=== PATIENT | female | born 1975 | race American Indian/Alaskan Native ===

== ENCOUNTER 2016-10-25 06:54 | Day surgery (SDC) | payer OTHER ==
[2016-10-17 08:49] VITALS: BMI 29.9
[2016-10-25] MEDS ORDERED: Midazolam 2 MG/2 ML VIAL ONE (09:19)
[2016-10-25] MEDS ORDERED: Propofol 10 mg/ml Inj (20 ML) ONE (09:19)
[2016-10-25] MEDS ORDERED: Lactated Ringer's 1,000 ML IV ONE ×2 (09:20)
[2016-10-25] MEDS ORDERED: HYDROmorphone 0.5 mg/0.5 ml ISec IVP PRN (10:37)
[2016-10-25] MEDS ORDERED: HYDROmorphone 0.5 mg/0.5 ml ISec ONE ×2 (10:48→11:47)
[2016-10-25] MEDS ORDERED: HYDROmorphone 0.5 mg/0.5 ml ISec IVP ONE ×2 (11:18→11:49)
[2016-10-25 11:58] LABS: HEMATOCRIT 36.4 % (34.0-47.0); MEAN CELL VOLUME 86.5 fL (81.0-99.0); MEAN CORPUSCULAR HEMOGLOBIN 27.1 pg (27.0-31.0); MEAN CORPUSCULAR HGB CONC 31.3 g/dL (33.0-37.0); MEAN PLATELET VOLUME 10.3 fL (7.2-11.7); RED CELL DISTRIBUTION WIDTH 14.4 % (11.5-14.5)
[2016-10-25 11:59] LABS: WHITE BLOOD COUNT 11.9 K/uL (4.8-10.8)
[2016-10-25 12:15] LABS: CHLORIDE 103 mmol/L (98-107); SODIUM 137 mmol/L (132-148)
[2016-10-25 12:17] LABS: GFR AFRICAN-AMERICAN > 60
[2016-10-25 12:18] LABS: BLOOD UREA NITROGEN 11 mg/dL (7-17); CALCIUM 7.3 mg/dl (8.6-10.4); CARBON DIOXIDE 23 mmol/L (22-30); GLUCOSE,RANDOM 93 mg/dL (65-105)
--- NOTE | 2016-10-25 12:24 | PCM.SURG1 ---
Surgeon's Initial Post Op Note - Surgeon's Notes Surgeon: Bre Garsia MD Site Administrator: none Type of Anesthesia: General LMA Pre-Operative Diagnosis: Submucosal myomas, sympoamtic fibroid uteurs, abnormal uterine bleeding, pelvic pain Operative Findings: Enlarged 12 week size uteurs, no adnexal masses, 5cm+ submucosal myoma protruding 80-90% into cavity, bilateral ostia visulzied Post-Operative Diagnosis: same as above Operation Performed: Hysteroscopic myomecotmy, fractional dilation and currettage Specimen/Specimens Removed: endocervical currettings, endometrial curretings, submucosal myoma Estimated Blood Loss: EBL {In ML}: 50 Drains Used: No Drains Post-Op Condition: Good Date of Surgery/Procedure: 10/25/16 Time of Surgery/Procedure: 10:00
--- NOTE | 2016-10-25 13:37 | OP ---
PROCEDURE DATE: 10/25/2016 SURGEON: Dr. Bre Garsia BACK UP MACHINE OPERATOR: None. TYPE OF ANESTHESIA: General LMA. PREOPERATIVE DIAGNOSES: Submucosal myoma, symptomatic fibroid uterus, abnormal uterine bleeding, pel isaak pain. OPERATIVE FINDINGS: Enlarged 12-week size uterus, no adnexal masses, 5 cm plus submucosal myoma prot ruding 80%-90% into the cavity, bilateral ostia visualized. POSTOPERATIVE DIAGNOSIS: Submucosal myoma, symptomatic fibroid uterus, abnormal uterine bleeding, pe lvic pain. OPERATION PERFORMED: Hysteroscopic myomectomy, fractional dilation and curettage. SPECIMEN REMOVED: Endocervical curettings, endometrial curettings, submucosal myoma. ESTIMATED BLOOD LOSS: 10 mL. BLOOD PRODUCTS: None. COMPLICATIONS: None. The patient was taken to the operating where she was given general anesthesia. Once this was found b e adequate, the patient was positioned on the operating table in dorsal supine position with legs sup ported using stirrups. The patient was prepped and draped in usual sterile fashion. Timeout, which confirmed correct patient and correct procedure. Bimanual exam was performed with above-mentioned fi ndings. The red rubber catheter was then inserted in the urethra to drain the bladder, 30 mL of enriqueta r yellow urine were obtained. Following this, Keating retractor was placed in the anterior, posterior f ornix of vagina. Cervical was adequately visualized. Single tooth tenaculum was placed on the anter ior lip of the cervix. Endocervical curettings were obtained with a Lupilloian curette and [facility]. Following this, the uterus was then sounded to 10 cm and the cervix was sequential ly dilated to allow for introduction of the MyoSure hysteroscope under direct visualization using nor mal saline as the distending media. Upon visualization, there was a very large myoma noted to be att ached anterior protruding into the cavity. After advancing the scope inferior to this myoma, bilater al ostia were visualized. The MyoSure device was then inserted under direct visualization and was ca refully resected until fluid deficit of 1800 mL was then noted. Following this, the hysteroscope was then removed and a gentle curettage was done 360 degrees until a gritty texture was noted. The sing le tooth tenaculum was removed from the anterior lip of the cervix. Bimanual exam was performed and there was good hemostasis noted. All instruments were removed. At the end of the procedure, all nee dle, sponge and instrument counts were noted to be correct x 2. The patient tolerated the procedure well and was transferred to the recovery room in stable condition. Bre Garsia MD cc: [id number] TT: 10/25/2016 13:37:06 en
[2016-10-25 13:41] VITALS: O2SAT 100
[2016-10-25 17:24] VITALS: BP 114/66; PULSE 74; RESP 20; TEMP 98
== END 2016-10-25 15:45 | disposition home or self-care (01) ==
LOC: C.SDS 06:54
PROVIDERS: ATTEND Obstetrics & Gynecology
DX: D25.0 Submucous leiomyoma of uterus (principal); N93.9 Abnormal uterine and vaginal bleeding, unspecified; R10.2 Pelvic and perineal pain
CPT/HCPCS: 36415; 58558; 80048; 85027; 86850; 86900; 88305; J1100; J1170; J2250; J2405; J2704; J2765; J3010; J7120

== ENCOUNTER 2016-12-31 11:50 | Inpatient (IN) | payer OTHER ==
[2016-11-25 10:25] VITALS: BMI 29.9
[2016-12-31] MEDS ORDERED: Bupivacaine 0.5% Inj(30mL) ONE (13:50)
[2016-12-31] MEDS ORDERED: Sodium Citrate/Citric Acid 15 ml Sol ONE (14:00)
[2016-12-31] MEDS ORDERED: Lactated Ringer's 1,000 ML IV ONE ×3 (14:00→17:27)
[2016-12-31] MEDS ORDERED: Propofol 10 mg/ml Inj (20 ML) ONE (14:02)
[2016-12-31] MEDS ORDERED: Midazolam 2 MG/2 ML VIAL ONE (14:02)
[2016-12-31] MEDS ORDERED: Vasopressin 20 Units/ml Inj ONE (14:49)
[2016-12-31] MEDS ORDERED: Sodium Chloride 0.9% 20 ML IV ONE ×2 (14:50→15:04)
[2016-12-31] MEDS ORDERED: Sodium Chloride 0.9% 60 ML IV ONE (14:58)
[2016-12-31] MEDS ORDERED: Clindamycin 600mg/50ml D5W 600 MG/50 ML VIAL IVPB ONE (16:16)
--- NOTE | 2016-12-31 18:17 | PCM.SURG1 ---
Surgeon's Initial Post Op Note - Surgeon's Notes Surgeon: Bre Garsia MD Warranty Manager: Anthony Underwood MD Type of Anesthesia: General Endo Pre-Operative Diagnosis: Sympomatic fibroids uterus, pelvic pain, endometriosis , Abnormal uterine bleeding Operative Findings: enlarged multifibroid uterus, multiple submucosal myomas 2cm , larger fundal myoma 8cm protruding across uterus, 4cm posterior myoma, normla tubes and ovaries bilaterlluy. procedure converted from laparascopy to open due to unable to achieve hemostasis from kelin lmyoma resection. endometriotic implants noted on bowel ranging 0.5-1cm and in posterior cul de sac. urine output 600ml ebl 500ml. Dr Anthony Underwood was surgical brace maker and essential in gaining entyr, establishing pneoumperintum, myoma dissection, resection, obtaing hemostasis, closing all laerys and was present for entire care. Post-Operative Diagnosis: same as above Operation Performed: Laparasopic myomectomy, lysis of adhesions, resection and ablation of endometriosis, converted to mini laparatomy Specimen/Specimens Removed: myomas Estimated Blood Loss: EBL {In ML}: 500 Blood Products Given: N/A Drains Used: No Drains Date of Surgery/Procedure: 12/31/16 Time of Surgery/Procedure: 14:00
[2016-12-31] MEDS ORDERED: DiphenhydrAMINE 50 mg/ml Inj IVP PRN (18:22)
[2016-12-31] MEDS ORDERED: Dexamethasone 4 mg/1 ml IVP PRN (18:22)
[2016-12-31] MEDS ORDERED: Morphine Monoject Barrel PCA 1mg/ml IV PRN (18:25)
[2016-12-31] MEDS: HYDROmorphone 0.5 mg/0.5 ml ISec IVP PRN ×4 (18:27→19:24)
[2016-12-31] MEDS ORDERED: HYDROmorphone 0.5 mg/0.5 ml ISec ONE (18:28)
[2016-12-31] MEDS ORDERED: Lactated Ringer's 1,000 ML IV SCH ×2 (18:30)
[2016-12-31] MEDS ORDERED: Morphine Monoject Barrel PCA 1mg/ml IV SCH (19:30)
[2016-12-31 20:07] LABS: BASO % 0.1 % (0.0-2.0); LYMPH # 1.2 K/uL (1.0-4.3); LYMPH % 4.9 % (20.0-40.0); MEAN CORPUSCULAR HEMOGLOBIN 25.9 pg (27.0-31.0); MEAN CORPUSCULAR HGB CONC 31.5 g/dL (33.0-37.0); MEAN PLATELET VOLUME 9.7 fL (7.2-11.7); MONO # 0.4 K/uL (0.0-0.8); MONO % 1.8 % (0.0-10.0); NEUT # 22.8 K/uL (1.8-7.0); NEUT % 93.2 % (50.0-75.0); PLATELET COUNT 298 K/uL (130-400); RBC 3.61 Mil/uL (3.80-5.20); RED CELL DISTRIBUTION WIDTH 15.8 % (11.5-14.5); WHITE BLOOD COUNT 24.5 K/uL (4.8-10.8)
[2016-12-31 20:16] LABS: HEMOGLOBIN 9.4 g/dL (11.0-16.0); MEAN CELL VOLUME 82.4 fL (81.0-99.0)
[2016-12-31 20:18] LABS: BLOOD UREA NITROGEN 10 mg/dL (7-17); CALCIUM 7.7 mg/dl (8.6-10.4); GFR AFRICAN-AMERICAN > 60; GFR NON-AFRICAN AMERICAN > 60
[2016-12-31 20:54] LABS: BANDS 4 % (0-2); NEUTROPHIL 81 % (50-75); TOTAL CELLS COUNTED 100
[2016-12-31 20:55] LABS: HYPOCHROMIC SLIGHT; LYMPHOCYTE 9 % (20-40); MICROCYTOSIS SLIGHT; MONOCYTE 6 % (0-10); PLATELET ESTIMATE NORMAL (NORMAL); TEARDROP CELLS SLIGHT
[2016-12-31 20:56] LABS: LARGE PLATELETS PRESENT
[2016-12-31] MEDS ORDERED: Calcium Gluconate 4.65 mEq/10 ml Inj IVP ONE (21:03)
[2016-12-31] MEDS: Sodium Chloride 0.9% 1,000 ML IV SCH (21:15)
[2016-12-31] MEDS: Clindamycin 600mg/50ml D5W 600 MG/50 ML VIAL IVPB SCH (22:06)
[2017-01-01] MEDS: Sodium Chloride 0.9% 1,000 ML IV SCH (05:32)
[2017-01-01] MEDS: Clindamycin 600mg/50ml D5W 600 MG/50 ML VIAL IVPB SCH ×2 (06:11→14:59)
[2017-01-01 07:21] LABS: HEMOGLOBIN 9.1 g/dL (11.0-16.0); MEAN CELL VOLUME 83.1 fL (81.0-99.0); MEAN CORPUSCULAR HEMOGLOBIN 26.4 pg (27.0-31.0); MEAN CORPUSCULAR HGB CONC 31.8 g/dL (33.0-37.0); MEAN PLATELET VOLUME 10.1 fL (7.2-11.7); RBC 3.46 Mil/uL (3.80-5.20); RED CELL DISTRIBUTION WIDTH 15.5 % (11.5-14.5); WHITE BLOOD COUNT 18.2 K/uL (4.8-10.8)
[2017-01-01 07:45] LABS: GFR AFRICAN-AMERICAN > 60; GFR NON-AFRICAN AMERICAN > 60
[2017-01-01 07:46] LABS: BLOOD UREA NITROGEN 6 mg/dL (7-17); CALCIUM 7.9 mg/dl (8.6-10.4)
[2017-01-01] MEDS ORDERED: Oxycodone/Acetaminophen 5/325 mg Tab PO PRN (15:44)
[2017-01-01] MEDS: Oxycodone/Acetaminophen 5/325 mg Tab PO PRN ×2 (18:09→22:25)
--- NOTE | 2017-01-01 18:24 | CP.PCM.PN ---
Subjective - Date & Time of Evaluation Date of Evaluation: 01/01/17 Time of Evaluation: 06:00 - Subjective Subjective: pt seen and examined and reports moderate amout of pain controlled iwth college archivist. pt not yet ambuaitng, +martínez cathether, had 1 episode of nause overnight alleviated with medicatin. pt denies any ligtheadnes, dizzyness, PC, SOB Objective - Vital Signs/Intake and Output Vital Signs (last 24 hours): Temp Pulse Resp BP Pulse Ox 99 F 73 18 117/78 100 01/01/17 08:00 01/01/17 08:00 01/01/17 08:00 01/01/17 08:00 01/01/17 08:00 Intake and Output: 01/01/17 01/01/17 06:59 18:59 Intake Total 1620 120 Output Total 2150 350 Balance -530 -230 - Medications Medications: Current Medications Lactated Ringer's (Lactated Ringer's) 1,000 mls @ 125 mls/hr IV .Q8H JARET Stop: 01/01/17 18:29 Sodium Chloride (Sodium Chloride 0.9%) 1,000 mls @ 125 mls/hr IV .Q8H [facility]AR[facility] Last Admin: 01/01/17 05:32 Dose: 125 mls/hr Ibuprofen (Motrin Tab) 600 mg PO Q6 PRN PRN Reason: Pain, Mild (1-3) Oxycodone/Acetaminophen (Percocet 5/325 Mg Tab) 1 tab PO Q4H PRN PRN Reason: Pain, moderate (4-7) Stop: 01/04/17 15:45 Oxycodone/Acetaminophen (Percocet 5/325 Mg Tab) 2 tab PO Q4H PRN PRN Reason: Pain, severe (8-10) Stop: 01/04/17 15:46 Last Admin: 01/01/17 18:09 Dose: 2 tab - Labs Labs: 01/01/17 07:14 01/01/17 07:14 - Constitutional Appears: Well, Non-toxic - Head Exam Head Exam: ATRAUMATIC, NORMAL INSPECTION - Eye Exam Eye Exam: EOMI, Normal appearance Pupil Exam: NORMAL ACCOMODATION - ENT Exam ENT Exam: Mucous Membranes Moist - Neck Exam Neck Exam: Full ROM, Normal Inspection - Respiratory Exam Respiratory Exam: Clear to Ausculation Bilateral, NORMAL BREATHING PATTERN - Cardiovascular Exam Cardiovascular Exam: +S1, +S2 - GI/Abdominal Exam GI & Abdominal Exam: Soft, Normal Bowel Sounds Additional comments: TTP over incsin, no guarding, no reboudn tendernes, no rigidity, +BS Incsion C/D/ I healing well no vaignal bleeding - Extremities Exam Extremities Exam: Full ROM, Normal Capillary Refill - Back Exam Back Exam: CVA tenderness (L), NORMAL INSPECTION - Neurological Exam Neurological Exam: Alert, Oriented x3 Assessment and Plan (1) S/P myomectomy Assessment & Plan: 1. Pain Managaement: d/c ORTHOTIC PRACTITIONER, po percoect/ motrin 2. Diet Advance as tolerated 3. OUt of bed, encourage ambuation with assistance 4. AM labs 5. Abdominal binder 6. Incentive spirometer 7. d/ c martínez Status: Acute
[2017-01-01] MEDS: Simethicone 80 mg Chewtab PO SCH (23:37)
[2017-01-02] MEDS: Simethicone 80 mg Chewtab PO SCH ×4 (08:01→17:33)
[2017-01-02] MEDS: Docusate-Senna 50 mg-8.6 mg Tab PO PRN (08:02)
[2017-01-02] MEDS: Oxycodone/Acetaminophen 5/325 mg Tab PO PRN (08:03)
[2017-01-02 09:08] LABS: BASO % 0.2 % (0.0-2.0); EOS % 0.4 % (0.0-4.0); HEMOGLOBIN 7.5 g/dL (11.0-16.0); LYMPH # 2.8 K/uL (1.0-4.3); LYMPH % 22.8 % (20.0-40.0); MEAN CELL VOLUME 83.2 fL (81.0-99.0); MEAN CORPUSCULAR HEMOGLOBIN 26.2 pg (27.0-31.0); MEAN CORPUSCULAR HGB CONC 31.6 g/dL (33.0-37.0); MEAN PLATELET VOLUME 10.1 fL (7.2-11.7); MONO # 1.6 K/uL (0.0-0.8); MONO % 13.6 % (0.0-10.0); NEUT # 7.6 K/uL (1.8-7.0); RBC 2.84 Mil/uL (3.80-5.20); RED CELL DISTRIBUTION WIDTH 15.6 % (11.5-14.5); WHITE BLOOD COUNT 12.1 K/uL (4.8-10.8)
[2017-01-02] MEDS ORDERED: Hydrocodone/Acetaminophen 5 mg /300 mg Tab PO PRN ×2 (09:30→09:31)
[2017-01-02 13:49] LABS: BASO # 0.1 K/uL (0.0-0.2); BASO % 0.8 % (0.0-2.0); EOS # 0.1 K/uL (0.0-0.7); EOS % 0.4 % (0.0-4.0); HEMOGLOBIN 8.5 g/dL (11.0-16.0); LYMPH # 3.3 K/uL (1.0-4.3); LYMPH % 23.5 % (20.0-40.0); MEAN CELL VOLUME 83.5 fL (81.0-99.0); MEAN CORPUSCULAR HEMOGLOBIN 26.2 pg (27.0-31.0); MEAN CORPUSCULAR HGB CONC 31.3 g/dL (33.0-37.0); MEAN PLATELET VOLUME 10.1 fL (7.2-11.7); MONO # 1.7 K/uL (0.0-0.8); NEUT % 63.3 % (50.0-75.0); RBC 3.24 Mil/uL (3.80-5.20); RED CELL DISTRIBUTION WIDTH 15.9 % (11.5-14.5); WHITE BLOOD COUNT 14.2 K/uL (4.8-10.8)
--- NOTE | 2017-01-02 22:55 | CP.PCM.PN ---
Subjective - Date & Time of Evaluation Date of Evaluation: 01/02/17 Time of Evaluation: 08:30 - Subjective Subjective: Delayed entry Pt seen and examined and reports severe pain over entire abommen and incsion more than yestreday not allevaited with medication. pt reports nause, no vomiitng and has little appetite. pt reports out of bed , ambulating to bathroom , but states feels uncomfortable when walking more. Pt denies passing any flatus or BM. pt denies any bleeding. Pt denies any fevers,chills, CP, SOB, dizzyness. Pt reports trying to use incentie spirometer but is uncmfortable. Objective - Vital Signs/Intake and Output Vital Signs (last 24 hours): Temp Pulse Resp BP Pulse Ox 100.0 F H 98 H 20 101/67 100 01/02/17 20:00 01/02/17 20:00 01/02/17 20:00 01/02/17 20:00 01/02/17 20:00 - Medications Medications: Current Medications Acetaminophen/Hydrocodone Bitart (Vicodin 5 Mg-300 Mg) 1 tab PO Q4H PRN PRN Reason: Pain, moderate (4-7) Stop: 01/09/17 09:31 Acetaminophen/Hydrocodone Bitart (Vicodin 5 Mg-300 Mg) 2 tab PO Q4H PRN PRN Reason: Pain, severe (8-10) Stop: 01/09/17 09:32 Sodium Chloride (Sodium Chloride 0.9%) 1,000 mls @ 125 mls/hr IV .Q8H [facility] Last Admin: 01/01/17 05:32 Dose: 125 mls/hr Ketorolac Tromethamine (Toradol) 30 mg IVP Q6 JARET Last Admin: 01/02/17 17:32 Dose: 30 mg Ondansetron HCl (Zofran Inj) 4 mg IVP Q6 [facility] Last Admin: 01/02/17 13:04 Dose: 4 mg Senna/Docusate Sodium (Senokot S 50 Mg-8.6 Mg) 2 tab PO BID PRN PRN Reason: Constipation Last Admin: 01/02/17 08:02 Dose: 2 tab Simethicone (Mylicon Chew Tab) 80 mg PO TID [facility] Last Admin: 01/02/17 17:33 Dose: 80 mg - Labs Labs: 01/02/17 13:45 01/01/17 07:14 - Constitutional Appears: Well, Non-toxic - Head Exam Head Exam: NORMAL INSPECTION, NORMOCEPHALIC - Eye Exam Eye Exam: EOMI, Normal appearance - ENT Exam ENT Exam: Mucous Membranes Moist - Respiratory Exam Respiratory Exam: Clear to Ausculation Bilateral, NORMAL BREATHING PATTERN - Cardiovascular Exam Cardiovascular Exam: REGULAR RHYTHM, +S1, +S2 - GI/Abdominal Exam GI & Abdominal Exam: Soft, Normal Bowel Sounds Additional comments: TTP over incision, non distended, no guarding no reboudn tendernses no rigidity incsions c/d/i - Extremities Exam Extremities Exam: Normal Capillary Refill, Normal Inspection Additional comments: negateiev schuyler's sign - Back Exam Back Exam: NORMAL INSPECTION - Neurological Exam Neurological Exam: Alert, Awake, Oriented x3 - Psychiatric Exam Psychiatric exam: Normal Affect, Normal Mood - Skin Skin Exam: Dry, Intact, Normal Color Assessment and Plan (1) S/P myomectomy Assessment & Plan: 1. Pain Management; Toradol 30mg IVP q 6 hours, VIdocin prn 2. Nausea; Zofran: 4mg IV q 6 hours prn 3. Diet: Regular 4. Acticity: Out of bed , encourage ambuation 5. Continue Abdominal binder/ Incentive spirometer 6. Boewl Regimen: simethicon, sennakot, dulocax suppostory 7. Acute asymomatpic blood loss anemia: iron on ]hold due ot risk of constipation, f/u repeat cbc 8.Reevate in AM Status: Acute
[2017-01-03 07:30] LABS: BASO # 0.1 K/uL (0.0-0.2); BASO % 0.5 % (0.0-2.0); EOS # 0.1 K/uL (0.0-0.7); EOS % 0.6 % (0.0-4.0); HEMOGLOBIN 7.6 g/dL (11.0-16.0); LYMPH % 27.8 % (20.0-40.0); MEAN CELL VOLUME 83.6 fL (81.0-99.0); MEAN CORPUSCULAR HEMOGLOBIN 26.4 pg (27.0-31.0); MEAN CORPUSCULAR HGB CONC 31.5 g/dL (33.0-37.0); MEAN PLATELET VOLUME 10.2 fL (7.2-11.7); MONO # 1.3 K/uL (0.0-0.8); MONO % 11.6 % (0.0-10.0); NEUT # 6.5 K/uL (1.8-7.0); NEUT % 59.5 % (50.0-75.0); RBC 2.89 Mil/uL (3.80-5.20); RED CELL DISTRIBUTION WIDTH 15.8 % (11.5-14.5); WHITE BLOOD COUNT 10.9 K/uL (4.8-10.8)
[2017-01-03] MEDS: Simethicone 80 mg Chewtab PO SCH ×3 (10:13→18:02)
[2017-01-03] MEDS: Docusate-Senna 50 mg-8.6 mg Tab PO PRN (10:14)
--- NOTE | 2017-01-03 13:50 | CP.PCM.PN ---
Subjective - Date & Time of Evaluation Date of Evaluation: 01/03/17 Time of Evaluation: 08:00 - Subjective Subjective: Pt seen and examined and reports pain is better ocntrolled. pt had only small bw. pt reports nausea, no ovmiting. pt denies any ligtheadness, dizzyness CP, SOB. pt had very severe heatache this moring not alleviated with sudafed. Pt reports abodminla discomfort and feels like she will feel better after having a larger bm. Objective - Vital Signs/Intake and Output Vital Signs (last 24 hours): Temp Pulse Resp BP Pulse Ox 98.8 F 87 18 107/77 100 01/03/17 10:19 01/03/17 10:19 01/03/17 10:19 01/03/17 10:19 01/03/17 10:19 Intake and Output: 01/03/17 01/03/17 06:59 18:59 Intake Total 360 Balance 360 - Medications Medications: Current Medications Acetaminophen (Tylenol 325mg Tab) 650 mg PO Q8 PRN PRN Reason: Headache Stop: 01/04/17 23:59 Last Admin: 01/03/17 05:39 Dose: 650 mg Acetaminophen/Hydrocodone Bitart (Vicodin 5 Mg-300 Mg) 1 tab PO Q4H PRN PRN Reason: Pain, moderate (4-7) Stop: 01/09/17 09:31 Acetaminophen/Hydrocodone Bitart (Vicodin 5 Mg-300 Mg) 2 tab PO Q4H PRN PRN Reason: Pain, severe (8-10) Stop: 01/09/17 09:32 Sodium Chloride (Sodium Chloride 0.9%) 1,000 mls @ 125 mls/hr IV .Q8H [facility] Last Admin: 01/01/17 05:32 Dose: 125 mls/hr Ondansetron HCl (Zofran Inj) 4 mg IVP Q6 [facility] Last Admin: 01/03/17 12:15 Dose: Not Given Senna/Docusate Sodium (Senokot S 50 Mg-8.6 Mg) 2 tab PO BID PRN PRN Reason: Constipation Last Admin: 01/03/17 10:14 Dose: 2 tab Simethicone (Mylicon Chew Tab) 80 mg PO TID [facility] Last Admin: 01/03/17 10:13 Dose: 80 mg - Labs Labs: 01/03/17 07:21 01/01/17 07:14 - Constitutional Appears: Well, Non-toxic - Head Exam Head Exam: ATRAUMATIC, NORMAL INSPECTION - Eye Exam Eye Exam: EOMI Pupil Exam: NORMAL ACCOMODATION - ENT Exam ENT Exam: Mucous Membranes Moist, Normal Exam - Neck Exam Neck Exam: Full ROM - Respiratory Exam Respiratory Exam: Clear to Ausculation Bilateral, NORMAL BREATHING PATTERN - Cardiovascular Exam Cardiovascular Exam: +S1, +S2 - GI/Abdominal Exam GI & Abdominal Exam: Soft, Normal Bowel Sounds Additional comments: non distened, no guarding, no reboudn tenderness, no rigidyt Incisionc c/d/i no vaginal bleeding - Extremities Exam Extremities Exam: Full ROM, Normal Inspection Additional comments: negative schuyler's sign - Neurological Exam Neurological Exam: CN II-XII Intact - Psychiatric Exam Psychiatric exam: Normal Affect, Normal Mood - Skin Skin Exam: Dry, Intact, Normal Color Assessment and Plan (1) S/P myomectomy Assessment & Plan: 1. Pain managment d/c Toradol __> transitoin t po 2. Headache: Sudafed (pt reports ussually has helped alleviate headaches in the past) 3. Diet Regular 4. Encouarg eambaution, incentive spirometer, abdominal binder 5. Fleet enema 6. Reevaluate in PM Status: Acute
--- NOTE | 2017-01-03 14:31 | CP.PCM.DIS ---
Provider - Provider Date of Admission: 12/31/16 18:09 Attending physician: Bre Garsia MD Time Spent in preparation of Discharge (in minutes): 30 Diagnosis - Discharge Diagnosis (1) S/P myomectomy Status: Acute Hospital Course - Lab Results Lab Results: Most Recent Lab Values WBC 10.9 K/uL (4.8-10.8) H 01/03/17 07:21 RBC 2.89 Mil/uL (3.80-5.20) L 01/03/17 07:21 Hgb 7.6 g/dL (11.0-16.0) L 01/03/17 07:21 Hct 24.2 % (34.0-47.0) L 01/03/17 07:21 MCV 83.6 fL (81.0-99.0) 01/03/17 07:21 MCH 26.4 pg (27.0-31.0) L 01/03/17 07:21 MCHC 31.5 g/dL (33.0-37.0) L 01/03/17 07:21 RDW 15.8 % (11.5-14.5) H 01/03/17 07:21 Plt Count 244 K/uL (130-400) 01/03/17 07:21 MPV 10.2 fL (7.2-11.7) 01/03/17 07:21 Neut % (Auto) 59.5 % (50.0-75.0) 01/03/17 07:21 Lymph % (Auto) 27.8 % (20.0-40.0) 01/03/17 07:21 [place] % (Auto) 11.6 % (0.0-10.0) H 01/03/17 07:21 Eos % (Auto) 0.6 % (0.0-4.0) 01/03/17 07:21 Baso % (Auto) 0.5 % (0.0-2.0) 01/03/17 07:21 Neut # 6.5 K/uL (1.8-7.0) 01/03/17 07:21 Lymph # 3.0 K/uL (1.0-4.3) 01/03/17 07:21 [place] # 1.3 K/uL (0.0-0.8) H 01/03/17 07:21 Eos # 0.1 K/uL (0.0-0.7) 01/03/17 07:21 Baso # 0.1 K/uL (0.0-0.2) 01/03/17 07:21 Neutrophils % (Manual) 81 % (50-75) H 12/31/16 20:04 Band Neutrophils % 4 % (0-2) H 12/31/16 20:04 Lymphocytes % (Manual) 9 % (20-40) L 12/31/16 20:04 Monocytes % (Manual) 6 % (0-10) 12/31/16 20:04 Platelet Estimate Normal (NORMAL) 12/31/16 20:04 Large Platelets Present 12/31/16 20:04 Hypochromasia (manual) Slight 12/31/16 20:04 Microcytosis (manual) Slight 12/31/16 20:04 Tear Drop Cells Slight 12/31/16 20:04 Sodium 134 mmol/L (132-148) 01/01/17 07:14 Potassium 3.9 mmol/L (3.6-5.2) 01/01/17 07:14 Chloride 103 mmol/L (98-107) 01/01/17 07:14 Carbon Dioxide 23 mmol/L (22-30) 01/01/17 07:14 Anion Gap 12 (10-20) 01/01/17 07:14 BUN 6 mg/dL (7-17) L 01/01/17 07:14 Creatinine 0.6 MG/DL (0.7-1.2) L 01/01/17 07:14 Est GFR ( Amer) > 60 01/01/17 07:14 Est GFR (Non-Af Amer) > 60 01/01/17 07:14 Random Glucose 120 mg/dL (65-105) H 01/01/17 07:14 Calcium 7.9 mg/dl (8.6-10.4) L 01/01/17 07:14 Blood Type O POSITIVE 12/31/16 12:33 Antibody Screen Negative 12/31/16 12:33 - Hospital Course Hospital Course: normla posterative couurse Discharge Exam - Head Exam Head Exam: ATRAUMATIC, NORMAL INSPECTION - Eye Exam Eye Exam: Normal appearance Pupil Exam: NORMAL ACCOMODATION - ENT Exam ENT Exam: Mucous Membranes Moist - Respiratory Exam Respiratory Exam: NORMAL BREATHING PATTERN - Cardiovascular Exam Cardiovascular Exam: +S1, +S2 - GI/Abdominal Exam GI & Abdominal Exam: Normal Bowel Sounds, Soft, Unremarkable - Exam Additional comments: right sided 1.5cm skin abrasion, non tender, no discharge, C/d/i pt aware on right inner thigg - Extremities Exam Additional comments: negative schuyler's sign Discharge Plan - Discharge Medications Prescriptions: oxyCODONE/Acetaminophen [Percocet 5/325 mg Tab] 1 tab PO Q6 #20 tab - Follow Up Plan Condition: GOOD Disposition: HOME/ ROUTINE
[2017-01-04 12:03] VITALS: BP 108/78; PULSE 89; RESP 20; TEMP 99; O2SAT 98
--- NOTE | 2017-01-08 07:13 | OP ---
PROCEDURE DATE: 12/31/2016 PREOPERATIVE DIAGNOSES: Symptomatic fibroid uterus, pelvic pain, endometriosis, abnormal uterine bleeding. OPERATIVE FINDINGS: Large multifibroid uterus, multiple submucosal myoma of 2 cm, larger fundal myoma 8 cm floating across the uterus, 4 cm posterior myoma. Normal tubes and ovaries bilaterally. The procedure was converted from laparoscopy to open due to unable to achieve hemostasis from fundal myoma resection, endometriotic implants noted on bowel ranging from 0.5 to 1 cm and posterior cul-de-sac. POSTOPERATIVE DIAGNOSES: Symptomatic fibroid uterus, pelvic pain, endometriosis, abnormal uterine bleeding. OPERATION PERFORMED: Laparoscopic myomectomy converted to mini laparotomy, lysis of adhesions, resection, and ablation of endometriosis. SURGEON: Bre Garsia MD LINE INSTALLER TROLLEY: MD Dr. Anthony Caldera, the surgical device sales representative, was essential creating and entered to establishing pneumoperitoneum, myoma dissection, resection obtaining hemostasis closing all layers and was present for the entire case. TYPE OF ANESTHESIA: General endotracheal. ESTIMATED BLOOD LOSS: 500 mL. URINE OUTPUT: 600 mL. BLOOD PRODUCTS: None. COMPLICATIONS: None. SPECIMEN: Multiple myomas. DESCRIPTION OF PROCEDURE: The patient was taken to the operating room where she was given general anesthesia. Once this was found to be adequate, she was placed on the operating table in the dorsal supine position with the leg supported using stirrups. The patient was then prepped and draped in the usual sterile fashion and a time-out was confirmed to correct patient and correct procedure. A Perry catheter that was inserted into the urethra to drain the bladder. Following this, a bimanual exam was performed with above mentioned findings. Keating retractor was placed on anterior and posterior fornix of the vagina that was gradually visualized. Single tooth tenaculum used to grasp anterior lip of the cervix. The uterus was then sounded and a HUMI manipulator device was then inserted into the uterus to help with uterine manipulation. All instruments were removed except the HUMI manipulator device. The surgeon re-gloved and attention was then turned to the abdomen. The umbilical region was infiltrated with 0.5% Marcaine with epinephrine. A 5 mm Optiview trocar and cannula were inserted after placing the Veress needle, which was confirmation and placed normal saline insufflating the abdomen with CO2 gas to a pressure of 15 mmHg. The Optiview trocar was then inserted under direct visualization. Following this, there was a multifibroid uterus noted with endometriosis noted. A 10 mm trocar and cannula were placed suprapubically under direct visualization and after infiltration of 0.5% Marcaine without epinephrine. A 5 mm trocar and cannula were placed in the right lower quadrant under direct visualization after infiltration of 0.5% Marcaine with epinephrine. The pelvic contents were visualized and noted as above with multiple endometriotic plaques along the posterior surface and also was on the bowel. There was multiple fibroids noted with dense adhesion of the uterus to the anterior abdominal wall. There was normal bilateral fallopian tubes and ovaries. . Endometriotic implants 1cm, along posterio cul de sac were ablated, however plaque on bowel were not maniupulate. Following this, the uterus was grasped with a tenaculum to help identify retraction and closure through the fundus. Fundal fibroid was identified between the cavity and was injected with vasopressin 20 units mixed with 30 mL of normal saline along with serosal surface and careful to aspirate and avoid any blood vessels, 15 mL was injected. Next a point tip was used with a cautery setting along in the linear fashion to the fibroid fibrous risking the edges of the myometrium was brought with laparoscopic clamp stented out and a peanut probe was used to bluntly dissect around the fibroids followed with blunt dissection using cautery device. The fibroid was carefully dissected in its entirety of 8 cm carefully with repositioning obtaining hemostasis. Following this, there was oozing noted at the myometrial site where the procedure had occurred and pressure was applied. Laparoscopic fascial sutures were then used to help close the defect to obtain hemostasis, but was unsuccessful. At this point, the decision was made to convert to mini laparotomy. At this point, after entering the peritoneal abdominal cavity, the uterus was identified and hemostasis was obtained using 0-Vicryl suture along the myometrium, in which the myometrium was closed in two layers. The serosa was reapproximated and closed with 0-Vicryl in a running continuous fashion. The large fibroid was handed off. The large fibroid transverse to the myometrium and to the mucosal surface in the endometrial cavity and largely anterior. Several smaller fibroids were noted along the endometrial cervix extended into the myometrial cavity and removed. In addition, there was a 4 cm posterior lower uterine segment myoma which was carefully removed. The defect was then closed and the uterine incision was closed with first two interrupted layers of 0-Chromic and interrupted [id number] fashion and then with 0 Vicryl in a running baseball stitch. Uterus was seem to be completely hemostatic after closure. Following this, there was good hemostasis noted. Initially upon doing the laparoscopy, the endometriotic implants were carefully cauterized and excised and following removal of all specimens, there was good hemostasis noted. The peritoneum was re-approximated and closed with 2-0 Chromic interrupted manner. The rectus was re-approximated and closed with 2-0 Chromic in interrupted fashion and reapproximated and closed with 0 Vicryl in a running continuous fashion. Subcutaneous was closed with 2-0 plain interrupted manner. Skin was reapproximated with 4-0 Monocryl in a running subcuticular fashion. At the end of the procedure, all needle, sponge, and instrument counts were noted. The patient tolerated the procedure well and was transferred to the room in stable condition. Bre Garsia MD REJI
== END 2017-01-03 19:30 | disposition home or self-care (01) | DRG 743 ==
LOC: C.SDS 11:50 → C.4M 18:09
PROVIDERS: ADMIT Obstetrics & Gynecology; ATTEND Obstetrics & Gynecology
PROC: 0U590ZZ Destruction of Uterus, Open Approach (ICD-10-PCS; 2016-12-31)
PROC: 0U5F0ZZ Destruction of Cul-de-sac, Open Approach (ICD-10-PCS; principal; 2016-12-31 13:30)
PROC: 0UJD4ZZ Inspection of Uterus and Cervix, Percutaneous Endoscopic Approach (ICD-10-PCS; 2016-12-31 13:30)
DX: D25.0 Submucous leiomyoma of uterus (principal); N80.3 Endometriosis of pelvic peritoneum; N93.9 Abnormal uterine and vaginal bleeding, unspecified